=== PATIENT | male | born 1990 | race Caucasian/White ===

== ENCOUNTER 2023-08-31 16:51 | Emergency (ER) | payer OTHER | END 2023-08-31 19:27 | disposition home or self-care (01) | LOC: MW.ED 16:51 | DX: S80.211A Abrasion, right knee, initial encounter (principal); I10 Essential (primary) hypertension; J45.909 Unspecified asthma, uncomplicated; Z75.8 Other problems related to medical facilities and other health care; Z79.899 Other long term (current) drug therapy; Z79.51 Long term (current) use of inhaled steroids; W01.0XXA Fall on same level from slipping, tripping and stumbling without subsequent striking against object, initial encounter | CPT/HCPCS: 73562-26-RT; 73562-RT; 99282; 99283 ==

== ENCOUNTER 2024-08-04 07:52 | Emergency (ER) | payer SELFPAY ==
[2024-08-04] MEDS: Acetaminophen 325 MG Tab PO ONE (08:21)
[2024-08-04] MEDS: Sodium Chloride 0.9% 1,000 ML IV STA (08:23)
[2024-08-04] MEDS: Acetaminophen 500 MG Tab PO STA (08:23)
[2024-08-04] MEDS: diphenhydrAMINE 50 MG/ML SDV IVPUSH ONE (08:24)
[2024-08-04] MEDS: Metoclopramide 10 MG/2 ML SDV IVPUSH ONE (08:24)
== END 2024-08-04 09:31 | disposition home or self-care (01) ==
LOC: MW.ED 07:52
DX: G43.909 Migraine, unspecified, not intractable, without status migrainosus (principal); F43.9 Reaction to severe stress, unspecified; I10 Essential (primary) hypertension; J45.909 Unspecified asthma, uncomplicated; F17.200 Nicotine dependence, unspecified, uncomplicated; Z90.49 Acquired absence of other specified parts of digestive tract; Z79.51 Long term (current) use of inhaled steroids; Z79.899 Other long term (current) drug therapy
CPT/HCPCS: 70450; 70450-26; 96361; 96374; 96375; 99283; 99284-25; A9270-GY; J1200; J2765; J7030